=== PATIENT | male | born 1970 | race American Indian/Alaskan Native ===

== ENCOUNTER 2018-11-09 12:31 | Outpatient (CLI) | payer BC ==
--- NOTE | 2018-11-09 13:15 | XRay Report ---
CHEST 2 VIEWS INDICATION: SP/OP/XR/CHEST/URI. COMPARISON: None FINDINGS: Support devices: None. Heart: Within normal limits. Lungs/pleura: No acute air space or interstitial disease. No pneumothorax. Additional findings: None. IMPRESSION: 1. Normal chest x-ray Signer Name: Ryan Clemons Jr, MD Signed: 11/09/2018 12:10 PM Workstation Name: [id number]
== END 2018-11-09 12:32 | disposition home or self-care (01) ==
LOC: SPVIMAG 12:31
PROVIDERS: ATTEND Internal Medicine
DX: J06.9 Acute upper respiratory infection, unspecified (principal)
CPT/HCPCS: 71046